=== PATIENT | male | born 1970 | race Caucasian/White ===

== ENCOUNTER → 2018-06-11 | Emergency (ER) | payer OTHER ==
[~2018-06-11] MED LIST: IBUPROFEN600 MG ORAL; NKM
--- NOTE | 2018-06-11 21:26 | Emergency Room Report ---
History of Present Illness General Chief Complaint: To Be Triaged Present Illness HPI This patient left prior to evaluation by medical provider. Medical Decision Making PA Attestation Dr. baxter is my supervising Physician whom patient management has been discussed with. ER Course This patient left prior to evaluation by medical provider. Disposition: LEFT W/OUT BEING SEEN Condition: Unknown Referrals: [facility],REFERRING (PCP) Dixie Lyons Jun 11, 2018 21:26
== END | disposition left against medical advice (07) ==
LOC: EMR 17:32
DX: Z53.21 Procedure and treatment not carried out due to patient leaving prior to being seen by health care provider (principal)

== ENCOUNTER 2018-06-12 15:12 | Emergency (ER) | payer OTHER ==
[~2018-06-12] VITALS: Ht 180.3 cm; Wt 84.8 kg
[2018-06-12] MEDS ORDERED: NKM (15:40)
[2018-06-12] MEDS ORDERED: IBUPROFEN600 MG ORAL (15:49)
[2018-06-12 15:54] VITALS: BP 111/71
--- NOTE | 2018-06-12 15:56 | Emergency Room Report ---
History of Present Illness General Chief Complaint: Pain Source: Patient Present Illness HPI Patient present with complaints of acute discomfort to the left upper chest proximal arm area Patient presented yesterday he was doing a heavy weight in a flat bench type position he felt a tearing sensation in the left chest upper arm area And he continued to have some discomfort with flexion of his pectoral muscle Patient reports that he attempted to be seen at a clinic however there were some insurance issues and presents for further eval Denies any shortness of breath denies any back or flank pain Pain is worse after 90 of adduction of the arm and then attempts of flexion forward Patient has equal security technician Denies any neuropathy Patient History Past Medical History: see triage record Pertinent Family History: none Reviewed Nursing Documentation: PMH: Agreed; PSxH: Agreed Nursing Documentation-PMH Past Medical History: No History, Except For 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 Review of Systems All Other Systems: negative except mentioned in HPI Physical Exam Vital Signs Date Time Temp Pulse Resp B/P (MAP) Pulse Ox O2 Delivery O2 Flow Rate FiO2 06/12/18 15:36 97.6 67 16 129/70 96 97.5 Sp02 EP Interpretation: reviewed, normal General Appearance: well appearing, no apparent distress Head: normocephalic, atraumatic Eyes: bilateral eye PERRL, bilateral eye EOMI ENT: hearing grossly normal, normal pharynx, TMs + canals normal, uvula midline Neck: full range of motion, supple, no meningismus, no bony tend Respiratory: lungs clear, normal breath sounds, no rhonchi, no respiratory distress, no retraction, no accessory muscle use Cardiovascular #1: normal peripheral pulses, regular rate, rhythm, no edema, no gallop, no JVD, no murmur Gastrointestinal: normal bowel sounds, non tender, soft, no mass, no organomegaly, non-distended, no guarding, no hernia, no pulsatile mass, no rebound Genitourinary: no CVA tenderness Musculoskeletal: other - There is a small amount of ecchymosis noted to the proximal upper humerus, pectoral muscle is equal bilaterally, patient able to remove shirt without any difficulty, some tenderness is palpated to the proximal humerus, biceps area. Patient able to flex bilateral arms Neurologic: oriented x3, responsive, document management specialist III-XII nml as tested, sensory intact Psychiatric: mood/affect normal Skin: warm/dry, palpation normal Lymphatic: normal inspection, no adenopathy Medical Decision Making Diagnostic Impression: Primary Impression: partial muscle tear ER Course Given the patient's history exam and given the clinical follow-up Consistent with likely partial muscle tear Patient is able to flex and extend at the bicep is able to extend and flex at the pectoral region There was some ecchymosis at the proximal humeral region on the left upper arm Also confirming likely partial tear patient was given referral to specialty follow-up and will return with any changes Last Vital Signs Date Time Temp Pulse Resp B/P (MAP) Pulse Ox O2 Delivery O2 Flow Rate FiO2 06/12/18 15:36 97.6 67 16 129/70 96 97.5 Status: improved Disposition: HOME, SELF-CARE Condition: Stable Scripts Ibuprofen* (MOTRIN*) 600 Mg Tablet 600 MG ORAL Q8H PRN for For Pain, #20 TAB 0 Refills Prov: Treasure Villafana DO 06/12/18 Referrals: [facility],REFERRING (PCP) Cortez Sheth MD Patient Instructions: Muscle Tear Additional Instructions: Patient is provided with the discharge instructions notified to follow up with primary doctor in the next 2-3 days otherwise return to the er with any worsening symptoms. Please note that this report is being documented using [employer] technology. This can lead to erroneous entry secondary to incorrect interpretation by the dictating instrument. Treasure Villafana DO Jun 12, 2018 15:56
== END 2018-06-12 15:56 | disposition home or self-care (01) ==
LOC: EMR 15:42
DX: S46.812A Strain of other muscles, fascia and tendons at shoulder and upper arm level, left arm, initial encounter (principal); Y93.B3 Activity, free weights; Y92.9 Unspecified place or not applicable
CPT/HCPCS: 99283

== ENCOUNTER 2020-02-01 09:25 | Emergency (ER) | payer OTHER ==
[~2020-02-01] VITALS: Ht 180.3 cm; Wt 83.9 kg
[2020-02-01 09:25] VITALS: BP 150/80
[2020-02-01] MEDS ORDERED: TAMIFLU75 MG ORAL (10:00)
[2020-02-01] MEDS ORDERED: PROMETHAZINE-D118 ML ORAL (10:00)
[2020-02-01 10:05] VITALS: BP 145/77
--- NOTE | 2020-02-01 11:17 | Emergency Room Report ---
History of Present Illness General Chief Complaint: Upper Respiratory Illness Source: Patient Present Illness HPI 49-year-old male presents the ED for evaluation of cough and congestion. States he has had symptoms for 4 days now. Productive with yellowish phlegm. Notes body aches. denies Chest pain or shortness of breath. Afebrile in triage. States he resides in a rehab facility where other people are sick. Was told to come here for evaluation. Did not receive flu shot this year. Denies any recent travel. No other aggravating relieving factors. Denies any other associated symptoms COVID-19 risk:Contact w/high r: No COVID-19 risk:Travel to affect: No Has patient experienced servin: Yes Coronavirus symptoms experienc: Cough, Runny Nose, Flu-Like Symptoms Allergies: Coded Allergies: No Known Allergies (Unverified , 02/01/20) Patient History Past Medical History: none Past Surgical History: none Pertinent Family History: none Social History: Denies: smoking, alcohol use, drug use Immunizations: UTD Reviewed Nursing Documentation: PMH: Agreed; PSxH: Agreed Nursing Documentation-PMH Past Medical History: No History, Except For Review of Systems All Other Systems: negative except mentioned in HPI Physical Exam Vital Signs Date Time Temp Pulse Resp B/P (MAP) Pulse Ox O2 Delivery O2 Flow Rate FiO2 02/01/20 09:25 98.1 84 20 150/80 97 Room Air Sp02 EP Interpretation: reviewed, normal General Appearance: no apparent distress, alert, GCS 15, non-toxic Head: normocephalic, atraumatic Eyes: bilateral eye normal inspection, bilateral eye PERRL ENT: hearing grossly normal, normal pharynx, no angioedema, normal voice Neck: full range of motion, supple/symm/no masses Respiratory: chest non-tender, lungs clear, normal breath sounds, speaking full sentences Cardiovascular #1: regular rate, rhythm, no edema Cardiovascular #2: 2+ carotid (R), 2+ carotid (L), 2+ radial (R), 2+ radial (L) , 2+ dorsalis pedis (R), 2+ dorsalis pedis (L) Gastrointestinal: normal bowel sounds, non tender, soft, non-distended, no guarding, no rebound Rectal: deferred Genitourinary: normal inspection, no CVA tenderness Musculoskeletal: back normal, normal range of motion, gait/station normal, non- tender Neurologic: alert, motor strength/tone normal, oriented x3, sensory intact, responsive, speech normal Psychiatric: judgement/insight normal, memory normal, mood/affect normal, no suicidal/homicidal ideation Reflexes: 3+ bicep (R), 3+ bicep (L), 3+ tricep (R), 3+ tricep (L), 3+ knee (R) , 3+ knee (L) Lymphatic: no adenopathy Medical Decision Making Diagnostic Impression: Primary Impression: Upper respiratory infection Qualified Codes: J06.9 - Acute upper respiratory infection, unspecified ER Course Hospital Course 49-year-old male presents with body aches, cough Differential diagnoses include: URI, pharyngitis, otitis media, asthma Clinical course Patient placed in isolation tent. I wore full protective equipment. After initial history, physical exam reveals a male in no acute distress. Bilateral TM unremarkable. No pharyngeal erythema. No tonsillar exudates. No lymphadenopathy. lungs clear. abdomen soft. I discussed findings with patient. Afebrile, nontoxic-appearing. Vital stable. I explained that there is concern for coronavirus given his risk exposure. Also consideration for the flu. We will discharge with Tamiflu. Recommend going home and self-isolation at this time. Recommend any other close contacts to self isolate as well. Safe for discharge for close outpatient follow-up. I will provide referrals Diagnosis - URI Stable and discharged home with Rx Tamiflu, promethazine/DM. Instructed to followup with PMD. Return to ED if symptoms recur or worsen Last Vital Signs Date Time Temp Pulse Resp B/P (MAP) Pulse Ox O2 Delivery O2 Flow Rate FiO2 02/01/20 10:05 98.5 78 16 145/77 99 Room Air Status: improved Disposition: HOME, SELF-CARE Condition: Stable Scripts D-Methorphan Hb/Prometh Hcl* (PROMETHAZINE-DM SYRUP*) 118 Ml Syrup 5 ML ORAL Q6H PRN for For Cough, #118 ML 0 Refills Prov: Honorio Mendez MD 02/01/20 Oseltamivir Phosphate (Tamiflu) 75 Mg Capsule 75 MG ORAL TWICE A DAY for 5 Days, CAP Prov: Honorio Mendez MD 02/01/20 Referrals: [facility] Patient Instructions: Upper Respiratory Infection, Adult Additional Instructions: you may have coronavirus. treatment is self-isolation for 14 days. any close contacts will also need self-isolation. Honorio Mendez MD Feb 01, 2020 11:17
== END 2020-02-01 10:05 | disposition home or self-care (01) ==
LOC: EDBD 09:25 → EMR 09:40
DX: J06.9 Acute upper respiratory infection, unspecified (principal); Z03.818 Encounter for observation for suspected exposure to other biological agents ruled out
CPT/HCPCS: 99282